=== PATIENT | female | born 1940 | race Caucasian/White ===

== ENCOUNTER 2017-05-20 14:36 | Inpatient (IN) | payer MEDICARE, OTHER ==
[~2017-05-20] VITALS: Ht 157.5 cm; Wt 75.7 kg
[2017-05-20 04:00] VITALS: BP 156/55
[~2017-05-20 14:36] MED LIST: AMLO5TAB2 PO; ATOR20TA PO; ENTERAL NUTRITION FORMULA; MEMA10TA PO; NEBI5TAB8 PO; QUET25TA PO; REPA2TAB PO; SITA1TAB6 PO; ZOLP10TA6 PO
--- NOTE | 2017-05-20 14:45 | NUR ---
PT BIBRA TO ER BED 09. HERE FOR G TUBE MALFUNCTION/DISLODGEMENT. BLOOD NOTED TO G TUBE SITE. GOWNED AND PLACED ONM MONITOR. AWAITING MD BENITEZ.
--- NOTE | 2017-05-20 14:57 | NUR ---
DR GREGG AT BEDSIDE FOR EVAL.
[2017-05-20] MEDS ORDERED: IV NS 0.9% 500 ML BAG IV ONE (15:00)
--- NOTE | 2017-05-20 15:14 | NUR ---
IV LINE STARTED BLOOD DRAWN AND SENT TO LAB.
[2017-05-20 15:19] LABS: BASOPHILS % (AUTO) 0.4 % (0.0-2.0); EOSINOPHILS # (AUTO) 0.1 /CMM (0.0-0.7); EOSINOPHILS % (AUTO) 2.1 % (0.0-6.0); HEMATOCRIT 32 % (33-45); HEMOGLOBIN 10.6 g/dL (11.5-14.8); LYMPHOCYTES # (AUTO) 1.9 /CMM (0.8-4.8); LYMPHOCYTES % (AUTO) 28.9 % (20.0-44.0); MEAN CORPUSCULAR HEMOGLOBIN 30 PG (26.0-33.0); MEAN CORPUSCULAR HGB CONC 34 g/dl (31.0-36.0); MEAN CORPUSCULAR VOLUME 90 fL (82-100); MONOCYTES # (AUTO) 0.6 /CMM (0.1-1.30); MONOCYTES % (AUTO) 8.6 % (2.0-12.0); NEUTROPHILS # (AUTO) 3.8 /CMM (1.8-8.9); PLATELET COUNT (AUTO) 141 /CMM (150-450); RDW COEFFICIENT OF VARIATION 14.1 (11.5-15.0); RED BLOOD CELL COUNT(AUTO) 3.53 MIL/uL (4.0-5.2); WHITE BLOOD COUNT (AUTO) 6.4 K/uL (4.3-11.0)
[2017-05-20] MEDS ORDERED: VITA1TAB56 GT (15:24)
[2017-05-20] MEDS ORDERED: MECL-102 GT (15:24)
[2017-05-20] MEDS ORDERED: CALC-7 GT (15:24)
[2017-05-20] MEDS ORDERED: ESOM40CA GT (15:24)
[2017-05-20] MEDS ORDERED: ASCO500S2 GT (15:24)
[2017-05-20] MEDS ORDERED: INSU100V7 SQ (15:24)
[2017-05-20] MEDS ORDERED: ICOS1CAP GT (15:24)
[2017-05-20] MEDS ORDERED: METO25TA20 GT (15:24)
[2017-05-20] MEDS ORDERED: CLOP75TA2 GT (15:24)
[2017-05-20] MEDS ORDERED: LORA1TAB GT (15:24)
[2017-05-20] MEDS ORDERED: FERR-58 GT (15:24)
[2017-05-20] MEDS ORDERED: FURO40TA5 GT (15:24)
[2017-05-20] MEDS ORDERED: MEMA5TAB PO (15:24)
[2017-05-20] MEDS ORDERED: LOSA25TA13 GT (15:24)
[2017-05-20] MEDS ORDERED: DOXE6TAB3 GT (15:24)
[2017-05-20] MEDS ORDERED: ATOR10TA GT (15:24)
[2017-05-20] MEDS ORDERED: NUT.237L36 GT (15:27)
[2017-05-20 15:29] LABS: CALCIUM, SERUM 8.8 mg/dL (8.5-10.1); CARBON DIOXIDE 29 mmol/L (21-32); CHLORIDE 101 mmol/L (98-107); CREATININE 0.8 mg/dL (0.6-1.3); GLUCOSE 86 mg/dL (74-106); POTASSIUM 4.2 mmol/L (3.5-5.1); SODIUM SERUM 135 mmol/L (136-145); UREA NITROGEN, BLOOD 25 mg/dL (7-18)
[2017-05-20 15:33] LABS: INR 1.05 (0.87-1.13); PROTHROMBIN TIME 10.9 SECS (9.5-12.7)
[2017-05-20] MEDS ORDERED: MAGNESIUM HYDROXIDE 30 ML UDC PO PRN (16:30)
[2017-05-20] MEDS ORDERED: ONDANSETRON HCL/PF 4 MG/2 ML VIAL IVP PRN (16:30)
[2017-05-20] MEDS ORDERED: GLYTROL 1,000 ML BAG GT SCH (16:30)
[2017-05-20] MEDS ORDERED: ACETAMINOPHEN 325 MG TABLET PO PRN (16:30)
[2017-05-20] MEDS ORDERED: Z GUARD REMEDY 2 OZ OINT TP PRN (16:30)
[2017-05-20] MEDS ORDERED: ZOLPIDEM TARTRATE 5 MG TABLET PO PRN (16:30)
[2017-05-20] MEDS ORDERED: HYDROCODONE/APAP 5/325MG 1 EACH TABLET PO PRN (16:30)
[2017-05-20] MEDS ORDERED: MAG HYDROX/AL HYDROX/SIMETH 30 ML UDC PO PRN (16:30)
--- NOTE | 2017-05-20 16:44 | NUR ---
REPORT GIVEN TO NILSA. PT AWAITING TRANSFER TO FLOOR.
[2017-05-20] MEDS: FERROUS SULFATE (325 MG) 325 MG/TAB TABLET GT SCH (17:00)
[2017-05-20] MEDS: METOPROLOL TARTRATE 25 MG TABLET GT SCH (17:00)
--- NOTE | 2017-05-20 17:30 | NUR ---
Admitted patient from ER [facility] a leaking/bleeding G-tube site. Patient obtunded, contracted on bedrest. Unable to give history, Grandson at bedside with social worker palliative care. Vitals signs stable. wound on bilateral leg with non adhesive dressing. G-tube side full of blood and still leaking. Cleaned and picture taken.
[2017-05-20 18:00] VITALS: BP 156/55
--- NOTE | 2017-05-20 18:00 | NUR ---
Informed Dr. Goldsmith patient diabetic, asked for Accucheck order, waiting for response.
--- NOTE | 2017-05-20 18:30 | NUR ---
Informed Dr. Goldsmith patient G-tube leaking with clear liquid and moderate amout of blood. Vitals stable, ,no distress. G-tube feeding initiation on hold. Started D5 NS @ 100.
[2017-05-20] MEDS: IV D5/ 0.9% NACL 1,000 ML IV PRN (18:33)
[2017-05-20 20:00] VITALS: BP 138/62
--- NOTE | 2017-05-20 20:26 | NUR ---
MS-1/RENETTA SPOKE WITH JAYDE HO REGARDING ACCU CHECK, HOLD LANTUS AND PT NPO STATUS. HOLD ALL MEDS UNTIL FURTHER NOTICE. NEW ORDERS RECEIVED AND CARRIED OUT.
[2017-05-20] MEDS ORDERED: DEXTROSE 50%-WATER 50 ML DISP.SYRIN IV PRN (20:30)
--- NOTE | 2017-05-20 21:22 | NUR ---
MS-1/QUILLER TENDER WHILE REPOSITION PT. GTUBE BECAME DISLODGED. JAYDE HO CALLED AND MADE AWARE. DRESSING PLACED ON TOP OF STOMA. WILL CONTINUE TO MONITOR.
[2017-05-20] MEDS: MEMANTINE HCL 5 MG TABLET PO SCH (21:25)
[2017-05-20] MEDS: INSULIN DETEMIR 100 UNIT/ML CARTRIDGE SQ SCH (21:25)
[2017-05-20] MEDS: LORAZEPAM 1 MG TABLET GT SCH (21:25)
[2017-05-20] MEDS: ATORVASTATIN 10 MG TABLET GT SCH (21:25)
--- NOTE | 2017-05-20 22:42 | NUR ---
MS-1/OIL EXPERT REPORT TO ARDEN RINCON FOR CONT OF CARE.
--- NOTE | 2017-05-20 22:45 | NUR ---
RN NOTE RECEIVED REPORT FROM OUTGOING NURSE. PT RESTING IN BED WITH EYES CLOSED, NO DISTRESS NOTED AT THIS TIME. WILL MONITOR.
[2017-05-21] MEDS: BLOOD SUGAR DIAGNOSTIC 1 EACH STRIP IN SCH ×5 (00:20→23:44)
[2017-05-21] MEDS: IV D5/ 0.9% NACL 1,000 ML IV PRN ×2 (03:17→14:13)
[2017-05-21 04:00] VITALS: BP 155/56
[2017-05-21 04:28] VITALS: BP 155/56
--- NOTE | 2017-05-21 06:37 | NUR ---
RN NOTE NO SIGNIFICANT CHANGES OVERNIGHT. ABD DRESSING CHANGED, WAS SATURATED WITH BLOOD. IV INTACT AND PATENT, TOLERATING D5NS WELL. NPO AT THIS TIME. GI TO SEE PT. WILL ENDORSE TO DAY SHIFT FOR DORA.
[2017-05-21] MEDS: PANTOPRAZOLE 40 MG TABLET.DR PO SCH (06:46)
[2017-05-21 06:58] LABS: BASOPHILS % (AUTO) 0.2 % (0.0-2.0); EOSINOPHILS % (AUTO) 0.1 % (0.0-6.0); HEMATOCRIT 30 % (33-45); HEMOGLOBIN 10.1 g/dL (11.5-14.8); LYMPHOCYTES # (AUTO) 1.3 /CMM (0.8-4.8); LYMPHOCYTES % (AUTO) 19.3 % (20.0-44.0); MEAN CORPUSCULAR HEMOGLOBIN 31 PG (26.0-33.0); MEAN CORPUSCULAR HGB CONC 34 g/dl (31.0-36.0); MEAN CORPUSCULAR VOLUME 91 fL (82-100); MONOCYTES # (AUTO) 0.6 /CMM (0.1-1.30); MONOCYTES % (AUTO) 8.6 % (2.0-12.0); NEUTROPHILS % (AUTO) 71.8 % (43.0-81.0); PLATELET COUNT (AUTO) 125 /CMM (150-450); RDW COEFFICIENT OF VARIATION 14.9 (11.5-15.0); RED BLOOD CELL COUNT(AUTO) 3.29 MIL/uL (4.0-5.2)
[2017-05-21 07:07] LABS: CHOLESTEROL 113 mg/dL (<200); HDL CHOLESTEROL 72 mg/dL (40-60); LDL 41 mg/dL (0-99); THYROID STIMULATING HORMONE 5.088 uIU/mL (0.358-3.74); TRIGLYCERIDES 19 mg/dL (30-150)
[2017-05-21 07:10] LABS: CALCIUM, SERUM 8.1 mg/dL (8.5-10.1); CARBON DIOXIDE 27 mmol/L (21-32); CHLORIDE 105 mmol/L (98-107); CREATININE 0.7 mg/dL (0.6-1.3); GLUCOSE 125 mg/dL (74-106); MAGNESIUM 1.8 mg/dL (1.8-2.4); PHOSPHORUS 2.8 mg/dL (2.5-4.9); SODIUM SERUM 139 mmol/L (136-145); UREA NITROGEN, BLOOD 22 mg/dL (7-18)
--- NOTE | 2017-05-21 07:30 | NUR ---
MS RN NOTES RECEIVED PATIENT IN BED, AWAKE, EYES OPEN, NON VERBAL. ON ROOM AIR, BREATHING EVEN AND NON LABORED, NO SOB. PATIENT IS ON NPO STATUS, ON IVF D5 NS INFUSING AT 100ML/HR. ABDOMEN WITH STOMA, DRESSING INTACT, NO BLEEDING. NO FACIAL GRIMACING. BED LOW AND LOCKED. FOR GI CONSULT PER NIGHT NURSE REPORT. WILL CONT TO MONITOR.
[2017-05-21 08:00] VITALS: BP 152/46
[2017-05-21] MEDS: LOSARTAN POTASSIUM 25 MG TABLET GT SCH (09:00)
[2017-05-21] MEDS: CALCIUM CARB 250MG /VITAMIN D 1 UDTAB GT SCH (09:00)
[2017-05-21] MEDS: METOPROLOL TARTRATE 25 MG TABLET GT SCH ×2 (09:00→17:00)
[2017-05-21] MEDS: FERROUS SULFATE (325 MG) 325 MG/TAB TABLET GT SCH ×2 (09:00→17:00)
[2017-05-21] MEDS: AMLODIPINE BESYLATE 5 MG TABLET PO SCH (09:00)
--- NOTE | 2017-05-21 11:58 | NUR ---
CALLED DR. MENJIVAR/BRITTANY (COMMERCIAL GREEN RETROFIT ARCHITECT) FOR CONSULT, LEFT MESSAGE TO HIS VOICE MAIL. AWAITING CALL BACK.
--- NOTE | 2017-05-21 12:06 | NUR ---
ACCU CHECK BS 131MG/DL. NO INSULIN COVERAGE ORDERED.
[2017-05-21 16:00] VITALS: BP 153/54
--- NOTE | 2017-05-21 17:30 | NUR ---
PATIENT IN BED, BILATERAL UPPER EXTREMITIES CONTRACTED. PROVIDED SKIN CARE TO THE PATIENT, POP SOUND HEARD WHILE PLACING PILLOWS UNDER RIGHT ARM. CHARGE NURSE MADE AWARE. NOTIFIED DR.SAM DING, ORDERED XRAY.
--- NOTE | 2017-05-21 17:32 | NUR ---
ACCU CHECK BS 111MG/DL. NO INSULIN COVERAGE ORDERED.
--- NOTE | 2017-05-21 18:29 | NUR ---
MS RN CLOSING NOTES PATIENT IN BED, NOT IN DISTRESS. NO S/S OF HYPO/HYPERGLYCEMIA. ABDOMINAL STOMA CLEAN, COVERED WITH DRY GAUZE, NO BLEEDING NOTED. DR. METZGER/BRITTANY WAS NOTIFIED X2 FOR CONSULT, AWAITING MD TO CALL BACK. PATIENT APPEARS COMFORTABLE IN BED, NO FACIAL GRIMACE. XRAY RIGHT FOREARM AND RIGHT HUMERUS RESULT PENDING. BED LOW AND LOCKED FOR SAFETY. WILL ENDORSE TO BRISKET PULLER RN FOR CONTINUITY OF CARE.
--- NOTE | 2017-05-21 19:05 | NUR ---
RN OPENING NOTES RECEIVED REPORT FROM GARRETT RINCON. PATIENT NON-VERBAL, OBTUNDED. BREATHING EVEN AND UNLABORED, NO RESPIRATORY DISTRESS OR SOB NOTED, ON ROOM AIR. PULSES PRESENT. LEFT FOREARM IV SITE #20 CDI W/ D5 NS @ 100ML/HR. WINKLER CATH INTACT AND DRAINING YELLOW URINE. GT SITE DRESSING CDI, NO ACTIVE BLEEDING NOTED. SIDE RAILS UP, BED LOCKED AND IN LOWEST POSITION. WILL CONTINUE TO MONITOR.
--- NOTE | 2017-05-21 19:58 | NUR ---
RN NOTES PAGED FOR ON-CALL COMMERCIAL LOAN COLLECTION OFFICERJAYDE REGARDING X-RAY RESULTS OF RIGHT FOREARM AND RIGHT HUMERUS. AWAITING CALL BACK.
[2017-05-21 20:00] VITALS: BP 156/46
--- NOTE | 2017-05-21 20:07 | NUR ---
RN NOTES RECEIVED CALL FROM JAYDE ON-CALL TELECOMMUNICATION OPERATOR AND REPORTED PATIENT'S X-RAY RESULTS OF RIGHT FOREARM AND RIGHT HUMERUS. NO NEW ORDERS GIVEN. PER JAYDE, CONTINUE TO MONITOR AND FOLLOW-UP IN THE MORNING.
--- NOTE | 2017-05-21 20:52 | NUR ---
RN NOTES RECEIVED CALL BACK FROM ELIZABETH DONOHUE W/ NEW ORDERS. ORDERS CARRIED OUT.
[2017-05-21] MEDS: MEMANTINE HCL 5 MG TABLET PO SCH ×2 (21:49→21:57)
[2017-05-21] MEDS: LORAZEPAM 1 MG TABLET GT SCH ×2 (21:49→21:56)
[2017-05-21] MEDS: ATORVASTATIN 10 MG TABLET GT SCH ×2 (21:49→21:57)
[2017-05-21] MEDS: MUPIROCIN OINT 2% 22 GM TUBE SCH (21:54)
[2017-05-21] MEDS: INSULIN DETEMIR 100 UNIT/ML CARTRIDGE SQ SCH (22:00)
[2017-05-22] MEDS: IV D5/ 0.9% NACL 1,000 ML IV PRN ×2 (02:00→11:47)
[2017-05-22 04:00] VITALS: BP 152/49
--- NOTE | 2017-05-22 07:00 | NUR ---
RN NOTES RECEIVED PT ON BED , NON-VERBAL, OBTUNDED. BREATHING EVEN AND UNLABORED, ON RA, NO SOB NOTED , NO RESPIRATORY DISTRESS NOTED , LEFT FOREARM IV SITE #20 CDI W/ D5 NS @ 100ML/HR RUNNING WELL. WINKLER CATH INTACT AND DRAINING YELLOW URINE. GT SITE DRESSING CDI, NO ACTIVE BLEEDING NOTED. SIDE RAILS UPx3, CALL LIGHT WITHIN EASY REACH, BED LOCKED AND IN LOWEST POSITION. WILL CONTINUE TO MONITOR PT CLOSELY AND NOTIFY MD FOR ANY SIGNIFICANT CHANGES.
[2017-05-22] MEDS: BLOOD SUGAR DIAGNOSTIC 1 EACH STRIP IN SCH ×3 (07:21→23:19)
[2017-05-22] MEDS: PANTOPRAZOLE 40 MG TABLET.DR PO SCH ×2 (07:30→08:12)
[2017-05-22] MEDS: INSULIN DETEMIR 100 UNIT/ML CARTRIDGE SQ SCH ×2 (07:44→22:00)
[2017-05-22 08:00] VITALS: BP 155/47
[2017-05-22 08:03] VITALS: BP 155/37
[2017-05-22] MEDS: FERROUS SULFATE (325 MG) 325 MG/TAB TABLET GT SCH ×3 (08:12→16:51)
[2017-05-22] MEDS: AMLODIPINE BESYLATE 5 MG TABLET PO SCH ×2 (08:13→08:21)
[2017-05-22] MEDS: LOSARTAN POTASSIUM 25 MG TABLET GT SCH ×2 (08:13→08:19)
[2017-05-22] MEDS: CALCIUM CARB 250MG /VITAMIN D 1 UDTAB GT SCH ×2 (08:13→08:20)
[2017-05-22] MEDS: METOPROLOL TARTRATE 25 MG TABLET GT SCH ×3 (08:13→16:51)
[2017-05-22] MEDS: MUPIROCIN OINT 2% 22 GM TUBE SCH ×2 (08:15→21:47)
[2017-05-22 08:46] LABS: BASOPHILS % (AUTO) 0.1 % (0.0-2.0); HEMATOCRIT 28 % (33-45); HEMOGLOBIN 9.3 g/dL (11.5-14.8); LYMPHOCYTES # (AUTO) 1.2 /CMM (0.8-4.8); LYMPHOCYTES % (AUTO) 13.2 % (20.0-44.0); MEAN CORPUSCULAR HEMOGLOBIN 30 PG (26.0-33.0); MEAN CORPUSCULAR HGB CONC 34 g/dl (31.0-36.0); MEAN CORPUSCULAR VOLUME 90 fL (82-100); MONOCYTES # (AUTO) 0.9 /CMM (0.1-1.30); MONOCYTES % (AUTO) 9.7 % (2.0-12.0); NEUTROPHILS # (AUTO) 6.8 /CMM (1.8-8.9); PLATELET COUNT (AUTO) 112 /CMM (150-450); RDW COEFFICIENT OF VARIATION 15.4 (11.5-15.0); RED BLOOD CELL COUNT(AUTO) 3.07 MIL/uL (4.0-5.2); WHITE BLOOD COUNT (AUTO) 8.8 K/uL (4.3-11.0)
[2017-05-22 09:19] LABS: CALCIUM, SERUM 7.6 mg/dL (8.5-10.1); CARBON DIOXIDE 23 mmol/L (21-32); CHLORIDE 110 mmol/L (98-107); CREATININE 0.7 mg/dL (0.6-1.3); GLUCOSE 183 mg/dL (74-106); MAGNESIUM 1.7 mg/dL (1.8-2.4); PHOSPHORUS 2.3 mg/dL (2.5-4.9); POTASSIUM 3.8 mmol/L (3.5-5.1); SODIUM SERUM 142 mmol/L (136-145); UREA NITROGEN, BLOOD 16 mg/dL (7-18)
--- NOTE | 2017-05-22 12:00 | NUR ---
RN NOTES PT STABLE , NON VERBAL , VSS STABLE , CONTINUE TO MONITOR .
[2017-05-22] MEDS ORDERED: DEXTROSE 50%-WATER 50 ML DISP.SYRIN IV PRN (12:30)
--- NOTE | 2017-05-22 14:55 | NUR ---
WOUND CARE CONSULT PATIENT SEEN AND SKIN ASSESSED. PATIENT PRESENTS WITH MULTIPLE POA SKIN ISSUES. UNABLE TO ASSESS RIGHT ARM IS IS CURRENTLY WRAPPED IN A CAST. PICTURES SHOW MULTIPLE AREAS OF BRUISING; NO OBVIOUS PRESSURE AREAS NOTED. LEFT UPPER ARM SKIN TEAR, RIGHT KNEE ABRASION, AND LEFT POSTERIOR LOWER LEG OPEN AREA, RECOMMEND TRIPLE ABX OINTMENT AND MEPILEX. RECOMMEND LEAVE RIGHT LEG SCABS AND SCARING OPEN TO AIR. FOR LEFT AND RIGHT BREAST FOLD REDNESS, RECOMMEND CLEANSE WITH SOAP AND WATER, PAT DRY, APPLY ZGUARD. WILL DEFER OLD GTUBE SITE WOUND TO GI MD FOR TREATMENT. PATIENT CURRENTLY ON STRIKER GEL MATTRESS, RECOMMEND ISOFLEX LOW AIR LOSS MATTRESS. WOUND SKIN CARE PLAN IN PLACE. ALL ORDERS PLACE AND RECOMMENDATIONS DISCUSSED WITH NURSING AT THE BEDSIDE. WILL CONTINUE TO FOLLOW PATIENT NEEDED. Addendum: 05/22/17 at 1504 by PATTY REYNA RN Amended: Links added.
[2017-05-22 16:00] VITALS: BP 158/54
[2017-05-22] MEDS ORDERED: Sodium Phosphate 15 MMOL in IV D5W 250 ML IV ONE (16:00)
[2017-05-22] MEDS: NEOMY SULF/BACITRAC ZN/POLY 15 GM TUBE TP SCH (17:42)
--- NOTE | 2017-05-22 18:16 | NUR ---
RN NOTES PT AT REST , RESPIRATION EVEN AND UNLABORED, D5NS AT 100CC/HR RUNNING VIA LFA IV SITE, SUPPORTIVE FAMILY AT THE BEDSIDE, SR UP x3, CALL LIGHT WITHIN EASY REACH, MEDICATED PER MD ORDER , NO SIGNIFICANT CHANGES NOTED ON THIS SHIFT.
[2017-05-22 20:00] VITALS: BP 157/69
--- NOTE | 2017-05-22 20:00 | NUR ---
MS RN NOTE PT IN BED ASLEEP, AROUSABLE. NON VERBAL OBTUNDED. NO DISTRESS OR DISCOMFORT NOTED. NO S/S OF PAIN NOTED. F/C INTACT AND PATENT. DRAINING WELL. PT IS NPO. GT SITE WITH DRESSING NOTED, C/D/I. LFA #20 G D5NS @ 100 ML/HR INFUSING WELL, NO S/S OF INFILTRATION NOTED. NO S/S OF HYPO OR HYPERGLYCEMIA NOTED. 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 ISOLATION PRECAUTIONS TAKEN. RT ARM WITH RADHA WRAP ON. UPPER AND LOWER EXT'S CONTRACTED. SIDE RAILS UP X 3 AND CALL LIGHT WITHIN REACH. VSS. CONTINUE TO MONITOR HER.
[2017-05-22] MEDS: Magnesium 1GM/D5W 100ML PREMIX 100 ML IV SCH ×2 (21:00→21:47)
[2017-05-22] MEDS: MEMANTINE HCL 5 MG TABLET PO SCH (21:40)
[2017-05-22] MEDS: ATORVASTATIN 10 MG TABLET GT SCH (21:40)
[2017-05-22] MEDS: LORAZEPAM 1 MG TABLET GT SCH (21:40)
--- NOTE | 2017-05-22 23:43 | NUR ---
MS RN NOTE BLOODSUGAR CAME DOWN TO 51, DEXTROSE 50% IVP GIVEN. RECHECKED AFTER 20 MINUTES BS 174. PT IN NO DISTRESS OR DISCOMFORT.
[2017-05-23 04:00] VITALS: BP 150/50
[2017-05-23] MEDS: IV D5/ 0.9% NACL 1,000 ML IV PRN ×2 (04:49→17:16)
[2017-05-23] MEDS: BLOOD SUGAR DIAGNOSTIC 1 EACH STRIP IN SCH ×4 (05:47→23:03)
--- NOTE | 2017-05-23 06:25 | NUR ---
MS RN NOTE NO CHANGE IN CONDITION. PT IS OBTUNDED. NO DISTRESS OR DISCOMFORT NOTED. NO S/S OF PAIN NOTED. IVF D5NS @ 100 ML/HR INFUSING WELL, NO S/S OF INFILTRATION NOTED. F/C INTACT AND PATENT DRAINING YELLOWISH COLOR URINE. REPOSITION HER Q2H. SIDE RAILS UP X 2 AND CALL LIGHT WITHIN REACH. WILL ENDORSE TO DAY SHIFT NURSE FOR CONTINUE TO CARE.
[2017-05-23 06:49] LABS: BASOPHILS % (AUTO) 0.2 % (0.0-2.0); EOSINOPHILS % (AUTO) 0.2 % (0.0-6.0); HEMATOCRIT 28 % (33-45); HEMOGLOBIN 9.5 g/dL (11.5-14.8); LYMPHOCYTES # (AUTO) 1.8 /CMM (0.8-4.8); LYMPHOCYTES % (AUTO) 16.6 % (20.0-44.0); MEAN CORPUSCULAR HEMOGLOBIN 32 PG (26.0-33.0); MEAN CORPUSCULAR HGB CONC 34 g/dl (31.0-36.0); MEAN CORPUSCULAR VOLUME 92 fL (82-100); MONOCYTES # (AUTO) 1.2 /CMM (0.1-1.30); MONOCYTES % (AUTO) 11.2 % (2.0-12.0); NEUTROPHILS % (AUTO) 71.8 % (43.0-81.0); PLATELET COUNT (AUTO) 114 /CMM (150-450); RDW COEFFICIENT OF VARIATION 15.6 (11.5-15.0); RED BLOOD CELL COUNT(AUTO) 3.02 MIL/uL (4.0-5.2); WHITE BLOOD COUNT (AUTO) 11.1 K/uL (4.3-11.0)
--- NOTE | 2017-05-23 07:00 | NUR ---
RN NOTE RECEIVED PT ON BED , NON VERBAL ,OBTUNDED.RESPIRATION EVEN AND UNLABORED, ON RA , NO SOB NOTED, WINKLER DRAINING TO GRAVITY , INTACT AND PATENT , NPO. GT SITE WITH DRESSING C/D/I. LFA #20 G D5NS @ 100 ML/HR INFUSING WELL, NO S/S OF INFILTRATION NOTED. 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 ISOLATION PRECAUTIONS TAKEN. RADHA WRAP ON ON R ARM , UPPER AND LOWER EXT'S CONTRACTED. BED LOCKED AND IN LOWEST POSITION , SIDE RAILS UP X 3 AND CALL LIGHT WITHIN REACH. CONTINUE TO MONITOR PT CLOSELY.
[2017-05-23 07:30] LABS: CALCIUM, SERUM 7.5 mg/dL (8.5-10.1); CARBON DIOXIDE 23 mmol/L (21-32); CHLORIDE 112 mmol/L (98-107); CREATININE 0.6 mg/dL (0.6-1.3); GLUCOSE 80 mg/dL (74-106); MAGNESIUM 2.3 mg/dL (1.8-2.4); PHOSPHORUS 2.9 mg/dL (2.5-4.9); POTASSIUM 3.3 mmol/L (3.5-5.1); SODIUM SERUM 144 mmol/L (136-145); UREA NITROGEN, BLOOD 13 mg/dL (7-18)
[2017-05-23] MEDS: PANTOPRAZOLE 40 MG TABLET.DR PO SCH (07:30)
[2017-05-23 08:00] VITALS: BP 135/45
[2017-05-23] MEDS: FERROUS SULFATE (325 MG) 325 MG/TAB TABLET GT SCH ×2 (08:17→17:00)
[2017-05-23] MEDS: LOSARTAN POTASSIUM 25 MG TABLET GT SCH (08:17)
[2017-05-23] MEDS: METOPROLOL TARTRATE 25 MG TABLET GT SCH ×2 (08:17→17:00)
[2017-05-23] MEDS: CALCIUM CARB 250MG /VITAMIN D 1 UDTAB GT SCH (08:18)
[2017-05-23] MEDS: AMLODIPINE BESYLATE 5 MG TABLET PO SCH (08:18)
[2017-05-23] MEDS: MUPIROCIN OINT 2% 22 GM TUBE SCH ×2 (08:19→21:30)
[2017-05-23] MEDS: NEOMY SULF/BACITRAC ZN/POLY 15 GM TUBE TP SCH (08:20)
[2017-05-23] MEDS ORDERED: POTASSIUM CHLORIDE 20 MEQ POWDER PACKET GT SCH (11:00)
[2017-05-23] MEDS: POTASSIUM CL. PREMIX PERIPHER. 50 ML IV SCH ×2 (11:07→12:35)
[2017-05-23 12:00] VITALS: BP 131/50
--- NOTE | 2017-05-23 13:00 | NUR ---
RN NOTES ORTHO COMPANY NOTIFIED REGARDING RUANO BRACE FOR THE L ARM PER DR RESENDIZ ORDER,
[2017-05-23] MEDS: MORPHINE SULFATE INJ 2 MG/ML DISP.SYRIN IV PRN (13:10)
[2017-05-23 16:00] VITALS: BP 131/50
--- NOTE | 2017-05-23 18:10 | NUR ---
RN NOTES VSS STABLE , RESPIRATION EVEN AND UNLABORED, D5NS @100CC/HR RUNNING VIA L FOREARM IV SITE . L ARM MIDLINE SITE CDI, SR UP x3, CALL LIGHT WITHIN EASY REACH. DRESSING TO OLD GT SITE WITH SMALL AMOUNT OF OLD BLOOD ,NO SIGNIFICANT CHANGES NOTED ON THIS SHIFT.
[2017-05-23 20:00] VITALS: BP 90/65
--- NOTE | 2017-05-23 20:00 | NUR ---
MS RN NOTE PT IN BED OBTUNDED. NON VERBAL. NO DISTRESS OR DISCOMFORT NOTED. NO SS OF PAIN NOTED. F/C INTACT AND PATENT DRAINING TEA COLOR URINE. IVF D5NS INFUSING AT !00 ML/HR, NO S/S OF INFILTRATION NOTED AT LFA #18 G. MID LINE INTACT AND PATENT JANEE. NOTED PT WITH GENERALIZED EDEMA. ALL 4 EXT'S ARE CONTRACTED. RT ARM WITH SPLINT ON AND COVERED WITH RADHA WRAP. REPOSITION HER FOR SKIN MANAGEMENT. SIDE RAILS UP X 2 AND CALL LIGHT WITHIN REACH. VSS. CONTINUE TO MONITOR HER.
[2017-05-23] MEDS: MEMANTINE HCL 5 MG TABLET PO SCH (21:30)
[2017-05-23] MEDS: ATORVASTATIN 10 MG TABLET GT SCH (21:30)
[2017-05-23] MEDS: LORAZEPAM 1 MG TABLET GT SCH (21:30)
[2017-05-23] MEDS: INSULIN DETEMIR 100 UNIT/ML CARTRIDGE SQ SCH (21:31)
--- NOTE | 2017-05-23 23:04 | NUR ---
MS RN NOTE BS 131. HELD ALL HS MEDS AND INSULIN DUE TO PT REMAIN NPO.
[2017-05-24 04:00] VITALS: BP 103/49
[2017-05-24] MEDS: IV D5/ 0.9% NACL 1,000 ML IV PRN ×2 (04:04→14:37)
[2017-05-24] MEDS: BLOOD SUGAR DIAGNOSTIC 1 EACH STRIP IN SCH ×4 (06:00→23:08)
--- NOTE | 2017-05-24 07:15 | NUR ---
RN INITIAL NOTE PATIENT RECEIVED RESTING IN BED. PT OPENS EYES BUT IS NONVERBAL. NO S/S OF DISTRESS OR DISCOMFORT. RESPIRATIONS ARE EVEN AND UNLABORED. SATING WELL ON ROOM AIR. WINKLER CATH DRAINING TO GRAVITY. IV SITE FLUSHED, PATENT. GT SITE BANDAGE C/D/I. SKIN WARM AND DRY TO TOUCH. PATIENT IS ON NPO STATUS PENDING PEG PLACEMENT. SAFETY PRECAUTIONS IMPLEMENTED. BED IN LOCKED LOW POSITION WITH TWO SIDE RAILS UP. WILL MONITOR CLOSELY.
[2017-05-24] MEDS: PANTOPRAZOLE 40 MG TABLET.DR PO SCH (07:30)
[2017-05-24 07:58] LABS: CALCIUM, SERUM 7.1 mg/dL (8.5-10.1); CARBON DIOXIDE 23 mmol/L (21-32); CHLORIDE 116 mmol/L (98-107); CREATININE 0.6 mg/dL (0.6-1.3); GLUCOSE 152 mg/dL (74-106); POTASSIUM 3.7 mmol/L (3.5-5.1); SODIUM SERUM 148 mmol/L (136-145); UREA NITROGEN, BLOOD 11 mg/dL (7-18)
[2017-05-24 08:00] VITALS: BP 119/38
[2017-05-24] MEDS: NEOMY SULF/BACITRAC ZN/POLY 15 GM TUBE TP SCH (09:00)
[2017-05-24] MEDS: CALCIUM CARB 250MG /VITAMIN D 1 UDTAB GT SCH (09:00)
[2017-05-24] MEDS: LOSARTAN POTASSIUM 25 MG TABLET GT SCH (09:00)
[2017-05-24] MEDS: MUPIROCIN OINT 2% 22 GM TUBE SCH ×2 (09:00→21:34)
[2017-05-24] MEDS: FERROUS SULFATE (325 MG) 325 MG/TAB TABLET GT SCH ×2 (09:00→16:43)
[2017-05-24] MEDS: AMLODIPINE BESYLATE 5 MG TABLET PO SCH (09:00)
[2017-05-24] MEDS: METOPROLOL TARTRATE 25 MG TABLET GT SCH ×2 (10:24→16:44)
[2017-05-24 11:10] LABS: INR 1.1 (0.87-1.13); PROTHROMBIN TIME 11.8 SECS (9.5-12.7)
[2017-05-24] MEDS: INSULIN REGULAR, HUMAN 100 UNIT/ML 3 ML VIAL SQ PRN ×3 (11:34→23:07)
--- NOTE | 2017-05-24 11:34 | NUR ---
late entry ortho company [employer] fitted pt. yesterday and will deliver today.
[2017-05-24 12:00] VITALS: BP 133/38
[2017-05-24 16:00] VITALS: BP 126/38
[2017-05-24] MEDS ORDERED: ACETAMINOPHEN 650 MG/SUPP.RECT RC PRN (17:00)
--- NOTE | 2017-05-24 17:00 | NUR ---
RN NOTE ORTHO CAME AND FITTED PATIENT FOR BRACE. HAD TO RETURN TWO TIMES TO MODIFY BRACE. WILL ENDORSE DORA TO PM RN
--- NOTE | 2017-05-24 17:00 | NUR ---
RN NOTE PEG PLACEMENT SCHEDULED TOMORROW. LABS XRAY AND EKG ORDERED. CONSENTS OBTAINED AND PLACED IN CHART.
--- NOTE | 2017-05-24 18:44 | NUR ---
RN CLOSING NOTE ALL MD ORDERS CARRIED OUT. NO MAJOR EVENT OCCURRED DURING MY SHIFT. REPORT WILL BE GIVEN TO PM RN FOR DORA.
--- NOTE | 2017-05-24 19:49 | NUR ---
RN INITIAL NOTE; PT ON THE BED WITHOUT ANY DISTRESS . PT IS NON VERBAL. BREATHING EVEN AND UNLABORED ON ROOM AIR. PERIPHERAL IV IN LFA 18 G AND JANEE MIDLINE INTACT AND PATENT WITH CONTINUE D5NS @ 100 ML/HR. BRACE INTACT IN SERGIO , PULSE PRESENT IN RIGHT HAND . GENERALIZED EDEMA PRESENT . PT IS AFEBRILE . NPO STATUS . G TUBE PLACEMENT TOMORROW . PRESSURE DRESSING INTACT ON G TUBE STOMA . F/C INTACT AND DRAINING DARK YELLOW/GREENISH COLORED URINE . BED IN THE LOWEST/LOCKED POSITION. WILL TURN AND REPOSITION Q2H . WILL CONTINUE TO MONITOR .
[2017-05-24 20:00] VITALS: BP 132/34
[2017-05-24] MEDS: LORAZEPAM 1 MG TABLET GT SCH (21:38)
[2017-05-24] MEDS: ATORVASTATIN 10 MG TABLET GT SCH (21:38)
[2017-05-24] MEDS: MEMANTINE HCL 5 MG TABLET PO SCH (21:38)
[2017-05-24] MEDS: INSULIN DETEMIR 100 UNIT/ML CARTRIDGE SQ SCH (22:00)
[2017-05-25] MEDS: IV D5/ 0.9% NACL 1,000 ML IV PRN ×2 (00:27→14:36)
[2017-05-25 04:00] VITALS: BP 133/39
[2017-05-25] MEDS: INSULIN REGULAR, HUMAN 100 UNIT/ML 3 ML VIAL SQ PRN ×2 (05:42→13:06)
[2017-05-25] MEDS: BLOOD SUGAR DIAGNOSTIC 1 EACH STRIP IN SCH ×4 (05:42→23:51)
[2017-05-25 05:49] LABS: APPEARANCE,URINE TURBID (CLEAR); BILIRUBIN,URINE 1+ (NEGATIVE); BLOOD, URINE 2+ Ery/uL (NEGATIVE); COLOR,URINE BROWN (YELLOW); KETONES,URINE NEGATIVE (NEGATIVE); LEUKOCYTE ESTERASE ,URINE 2+ (NEGATIVE); NITRITE, URINE NEGATIVE (NEGATIVE); PH,URINE 8.5 (5.0-8.0); PROTEIN,URINE 3+ mg/dl (NEGATIVE); UGLUCOSE NEGATIVE (NEGATIVE); UROBILINOGEN,URINE 0.2 EU/dL (0.2)
[2017-05-25 05:51] LABS: BASOPHILS % (AUTO) 0.3 % (0.0-2.0); EOSINOPHILS % (AUTO) 0.4 % (0.0-6.0); HEMATOCRIT 23 % (33-45); HEMOGLOBIN 7.6 g/dL (11.5-14.8); LYMPHOCYTES # (AUTO) 1.4 /CMM (0.8-4.8); LYMPHOCYTES % (AUTO) 18.1 % (20.0-44.0); MEAN CORPUSCULAR HEMOGLOBIN 30 PG (26.0-33.0); MEAN CORPUSCULAR HGB CONC 33 g/dl (31.0-36.0); MEAN CORPUSCULAR VOLUME 91 fL (82-100); MONOCYTES # (AUTO) 0.8 /CMM (0.1-1.30); MONOCYTES % (AUTO) 10.5 % (2.0-12.0); NEUTROPHILS # (AUTO) 5.6 /CMM (1.8-8.9); NEUTROPHILS % (AUTO) 70.7 % (43.0-81.0); PLATELET COUNT (AUTO) 119 /CMM (150-450); RDW COEFFICIENT OF VARIATION 15.6 (11.5-15.0); RED BLOOD CELL COUNT(AUTO) 2.54 MIL/uL (4.0-5.2); WHITE BLOOD COUNT (AUTO) 7.9 K/uL (4.3-11.0)
[2017-05-25 05:55] LABS: BACTERIA,URINE 4+ /HPF (None Seen); SQUAMOUS EPITHELIAL CELL,UR Rare /HPF (None Seen); TRIPLE PHOSPHATE CRYSTAL,UR Few /HPF (None Seen); URINE AMORPHOUS URATE Many /HPF (None Seen)
[2017-05-25 06:02] LABS: CALCIUM, SERUM 7.2 mg/dL (8.5-10.1); CARBON DIOXIDE 22 mmol/L (21-32); CHLORIDE 118 mmol/L (98-107); CREATININE 0.7 mg/dL (0.6-1.3); GLUCOSE 167 mg/dL (74-106); POTASSIUM 3.1 mmol/L (3.5-5.1); SODIUM SERUM 149 mmol/L (136-145); UREA NITROGEN, BLOOD 10 mg/dL (7-18)
[2017-05-25 06:07] LABS: INR 1.11 (0.87-1.13)
--- NOTE | 2017-05-25 06:59 | NUR ---
RN EOS NOTE; PT REMAINED STABLE DURING THE SHIFT, NO ANY DISTRESS NOTED . IVF TOLERATED WELL. SERGIO BRACE INTACT . PULSE PRESENT . TOTAL CARE RENDERED , TYLENOL 650 MG SUPP GIVEN FOR TEMP 99.7 F . REPOSITIONED Q2H . ON NPO STATUS . WILL ENDORSE TO NEXT SHIFT RN FOR CONTINUITY OF CARE.
--- NOTE | 2017-05-25 07:10 | NUR ---
MS RN INITIAL NOTE: RECEIVED PATIENT BREATHING EVEN AND UNLABORED WITH NO SOB NOTED ON ROOM AIR. PATIENT IS OBTUNDED AND NONVERBAL. LFA 18 G AND JANEE MIDLINE INTACT AND PATENT. BRACE INTACT IN SERGIO WITH PULSE PRESENT IN RIGHT HAND AND WARM TO TOUCH. WINKLER CATH DRAINING TO GRAVITY WITH YELLOW/GREEN URINE NOTED. NPO STATUS. BED LOCKED, LOW WITH CALL LIGHT WITHIN REACH. ALL NEEDS MET AND ANTICIPATED. WILL CONT TO MONITOR.
[2017-05-25] MEDS: PANTOPRAZOLE 40 MG TABLET.DR PO SCH (07:30)
[2017-05-25 08:00] VITALS: BP 119/37
[2017-05-25] MEDS: LOSARTAN POTASSIUM 25 MG TABLET GT SCH (09:00)
[2017-05-25] MEDS: METOPROLOL TARTRATE 25 MG TABLET GT SCH ×2 (09:00→16:08)
[2017-05-25] MEDS: AMLODIPINE BESYLATE 5 MG TABLET PO SCH (09:00)
[2017-05-25] MEDS: CALCIUM CARB 250MG /VITAMIN D 1 UDTAB GT SCH (09:00)
[2017-05-25] MEDS: FERROUS SULFATE (325 MG) 325 MG/TAB TABLET GT SCH ×2 (09:00→16:07)
[2017-05-25] MEDS: POTASSIUM CL. PREMIX PERIPHER. 50 ML IV SCH ×4 (11:06→14:31)
[2017-05-25] MEDS: NEOMY SULF/BACITRAC ZN/POLY 15 GM TUBE TP SCH (11:07)
[2017-05-25] MEDS: MUPIROCIN OINT 2% 22 GM TUBE SCH ×2 (11:07→23:00)
--- NOTE | 2017-05-25 12:00 | NUR ---
MS RN NOTE: SURGERY CALLED TO INFORM OF PATIENT SCHEDULED FOR GTUBE AT 1730. FAMILY NOTIFIED AND WOULD LIKE TO SPEAK TO SURGEON PRIOR. WILL NOTIFY CHARGE NURSE DIRECTED BY SURGERY TO CONNECT FAMILY WITH SURGEON.
[2017-05-25 16:00] VITALS: BP 139/67
[2017-05-25] MEDS ORDERED: POTASSIUM CL. PREMIX PERIPHER. 50 ML IV SCH (16:00)
--- NOTE | 2017-05-25 16:03 | NUR ---
MS RN NOTE: NON ADMIN NOTE 1330 POTASSIUM NON-ADMIN. LAST BAG OF POTASSIUM GIVEN AT 1600- COMMUNICATED WITH PHARMACY TO SCHEDULE @ 1600 SINCE POTASSIUM UNABLE D/T TIME EXPIRATION.
--- NOTE | 2017-05-25 17:34 | NUR ---
MS RN NOTE: PATIENT TAKEN BY SURGERY NURSES. FAMILY AT BEDSIDE AND AWARE.
--- NOTE | 2017-05-25 18:29 | NUR ---
MS RN NOTE: PATIENT RETURNED FROM OR WITH 2 NURSES. PER NURSE, SURGERY NOT DONE DUE TO INFECTION AND NEW ORDERS ENTERED BY SURGEON.
--- NOTE | 2017-05-25 19:30 | NUR ---
MS RN CLOSING NOTE: FAMILY AT BEDSIDE SPEAKING TO SURGEON DR. NEWMAN. PATIENT REMAINED STABLE DURING SHIFT ON RA WITH NO SOB AND RESPIRATIONS EVEN AND UNLABORED. SERGIO BRACE INTACT. KEPT NPO ORDERED. IVF TOLERATED. WINKLER CATH INTACT AND DRAINING TO GRAVITY. REPORT GIVEN TO FLIGHT STEWARD NURSE FOR CONTINUITY OF CARE.
--- NOTE | 2017-05-25 19:46 | NUR ---
RN INITIAL M NOTE; PT ON THE BED WITHOUT ANY DISTRESS . PT IS NON VERBAL. BREATHING EVEN AND UNLABORED ON ROOM AIR. PERIPHERAL IV IN LFA 18 G AND JANEE MIDLINE INTACT AND PATENT WITH CONTINUE D5NS @ 100 ML/HR. BRACE INTACT IN SERGIO , PULSE PRESENT IN RIGHT HAND . GENERALIZED EDEMA PRESENT . PT IS AFEBRILE . NPO STATUS . 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 F/C INTACT AND DRAINING DARK YELLOW/GREENISH COLORED URINE . BED IN THE LOWEST/LOCKED POSITION. WILL TURN AND REPOSITION Q2H . WILL CONTINUE TO MONITOR
[2017-05-25 20:00] VITALS: BP 131/51
[2017-05-25] MEDS: PIPERACILLIN /TAZOBACTAM 2.25 G in IV D5W 50 ML IV SCH (20:01)
--- NOTE | 2017-05-25 21:00 | NUR ---
2100 AND 2200 PM MEDS NOT GIVEN PT NPO GT PLACEMENT NOT DONE D/T GASTROCUTANEOUS FISTULA, LEVEMIR NOT GIVEN WELL.
[2017-05-25] MEDS: MEMANTINE HCL 5 MG TABLET PO SCH (22:00)
[2017-05-25] MEDS: ATORVASTATIN 10 MG TABLET GT SCH (22:00)
[2017-05-25] MEDS: INSULIN DETEMIR 100 UNIT/ML CARTRIDGE SQ SCH (22:00)
[2017-05-25] MEDS: LORAZEPAM 1 MG TABLET GT SCH (22:00)
[2017-05-26] VITALS: BP 133/58
[2017-05-26] MEDS: PIPERACILLIN /TAZOBACTAM 2.25 G in IV D5W 50 ML IV SCH ×5 (00:09→23:37)
[2017-05-26 04:00] VITALS: BP 133/46
[2017-05-26] MEDS: BLOOD SUGAR DIAGNOSTIC 1 EACH STRIP IN SCH ×4 (05:26→23:39)
[2017-05-26] MEDS: INSULIN REGULAR, HUMAN 100 UNIT/ML 3 ML VIAL SQ PRN ×2 (05:37→11:43)
--- NOTE | 2017-05-26 06:08 | NUR ---
RN CLOSING M NOTE; ENDORSED PT ON THE BED WITHOUT ANY DISTRESS . PT IS NON VERBAL. BREATHING EVEN AND UNLABORED ON ROOM AIR. PERIPHERAL IV IN LFA 18 G AND JANEE MIDLINE INTACT AND PATENT WITH CONTINUE D5NS @ 100 ML/HR. BRACE INTACT IN SERGIO , PULSE PRESENT IN RIGHT HAND . GENERALIZED EDEMA PRESENT . PT IS AFEBRILE . NPO STATUS . 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 F/C INTACT AND DRAINING DARK YELLOW/GREENISH COLORED URINE . BED IN THE LOWEST/LOCKED POSITION. WILL TURN AND
[2017-05-26 06:21] LABS: BASOPHILS % (AUTO) 0.4 % (0.0-2.0); EOSINOPHILS % (AUTO) 0.3 % (0.0-6.0); HEMATOCRIT 25 % (33-45); HEMOGLOBIN 8.2 g/dL (11.5-14.8); LYMPHOCYTES # (AUTO) 1.6 /CMM (0.8-4.8); LYMPHOCYTES % (AUTO) 23.1 % (20.0-44.0); MEAN CORPUSCULAR HEMOGLOBIN 30 PG (26.0-33.0); MEAN CORPUSCULAR HGB CONC 33 g/dl (31.0-36.0); MEAN CORPUSCULAR VOLUME 92 fL (82-100); MONOCYTES # (AUTO) 0.7 /CMM (0.1-1.30); MONOCYTES % (AUTO) 10.3 % (2.0-12.0); NEUTROPHILS # (AUTO) 4.7 /CMM (1.8-8.9); NEUTROPHILS % (AUTO) 65.9 % (43.0-81.0); PLATELET COUNT (AUTO) 119 /CMM (150-450); RDW COEFFICIENT OF VARIATION 15.5 (11.5-15.0); WHITE BLOOD COUNT (AUTO) 7.1 K/uL (4.3-11.0)
[2017-05-26 06:51] LABS: CALCIUM, SERUM 7.2 mg/dL (8.5-10.1); CARBON DIOXIDE 21 mmol/L (21-32); CHLORIDE 119 mmol/L (98-107); CREATININE 0.8 mg/dL (0.6-1.3); GLUCOSE 203 mg/dL (74-106); PHOSPHORUS 2.2 mg/dL (2.5-4.9); SODIUM SERUM 149 mmol/L (136-145); UREA NITROGEN, BLOOD 11 mg/dL (7-18)
--- NOTE | 2017-05-26 07:11 | NUR ---
MS RN NOTES RECEIVED PATIENT IN BED AT MODERATE HIGH BACKREST POSITION IN NO ACUTE SIGNS SOF DISTRESS. OBTUNDED AND NON-VERBAL. ON ROOM AIR, BREATHING EVEN AND UNLABORED. IV ACCESS ON LFA G#18 AND JANEE MIDLINE INTACT AND PATENT, IVF OF D5NS @ 100 ML/HR IN FUSING WELL.. BRACE INTACT IN SERGIO DUE TO FX ON RIGHT ARM, PULSE PRESENT IN RIGHT HAND. REMAINS WITH GENERALIZED EDEMA, EXTREMITIES KEPT ELEVATED. NPO MAINTAINED. 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 DRESSING INTACT ON G-TUBE STOMA. WINKLER INTACT AND DRAINING CLEAR DARK YELLOWISH COLORED URINE. BED IN THE LOWEST/LOCKED POSITION WITH SIDE-RAILS UP APPROPRIATE. WILL MAINTAIN ALL SAFETY MEASURES AND WILL CONTINUE TO MONITOR PT ACCORDINGLY.
[2017-05-26] MEDS: PANTOPRAZOLE 40 MG TABLET.DR PO SCH (07:30)
[2017-05-26 07:53] VITALS: BP 131/52
[2017-05-26 08:00] VITALS: BP 131/52
[2017-05-26] MEDS: METOPROLOL TARTRATE 25 MG TABLET GT SCH ×2 (09:00→17:00)
[2017-05-26] MEDS: CALCIUM CARB 250MG /VITAMIN D 1 UDTAB GT SCH (09:00)
[2017-05-26] MEDS: AMLODIPINE BESYLATE 5 MG TABLET PO SCH (09:00)
[2017-05-26] MEDS: LOSARTAN POTASSIUM 25 MG TABLET GT SCH (09:00)
[2017-05-26] MEDS: FERROUS SULFATE (325 MG) 325 MG/TAB TABLET GT SCH ×2 (09:00→17:00)
--- NOTE | 2017-05-26 09:18 | NUR ---
RN NOTES PT'S ALL MEDS VIA GT NOT GIVEN, PT HAS NO G-TUBE IT WAS PULLED -OUT FEW DAYS AGO AND SHE'S NPO. WILL CONTINUE TO MONITOR
[2017-05-26] MEDS: MUPIROCIN OINT 2% 22 GM TUBE SCH ×2 (09:21→20:38)
[2017-05-26] MEDS: NEOMY SULF/BACITRAC ZN/POLY 15 GM TUBE TP SCH (09:21)
[2017-05-26] MEDS: IV D5/ 0.9% NACL 1,000 ML IV PRN (09:31)
[2017-05-26 16:00] VITALS: BP 116/45
--- NOTE | 2017-05-26 17:20 | NUR ---
RN NOTES ALL G-TUBE MEDS THIS [id number] NOT GIVEN, PT STILL HAS NO G-TUBE AND SHE'S STILL NPO ORDERED.
[2017-05-26] MEDS ORDERED: BISACODYL SUPP (10 MG) 10 MG/SUPP.RECT SUPP.RECT RC ONE (18:30)
[2017-05-26] MEDS: METOCLOPRAMIDE HCL 10 MG/2 ML VIAL IV SCH ×2 (18:52→23:37)
--- NOTE | 2017-05-26 19:05 | NUR ---
MS RN CLOSING NOTES PATIENT IN BED OBTUNDED AND NON-VERBAL. CONTINUES ON ON ROOM AIR, BREATHING EVEN AND UNLABORED. ALL NEEDS AND CARE PROVIDED WELL. IV ACCESS ON LFA G#18 AND JANEE MIDLINE INTACT AND PATENT, IVF INFUSING WELL.BRACE INTACT IN SERGIO DUE TO FX ON RIGHT ARM, PULSE PRESENT IN RIGHT HAND. REMAINS WITH GENERALIZED EDEMA, EXTREMITIES KEPT ELEVATED. NPO MAINTAINED. 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 DRESSING INTACT ON G-TUBE STOMA. WINKLER INTACT AND DRAINING CLEAR DARK YELLOWISH COLORED URINE. BED IN THE LOWEST/LOCKED POSITION WITH SIDE-RAILS UP APPROPRIATE. ALL SAFETY MEASURES MAINTAINED. ENDORSED TO MORTGAGE ORIGINATOR FOR DORA..
--- NOTE | 2017-05-26 19:30 | NUR ---
MS RN NOTE RECEIVED PATIENT FROM DAY SHIFT, PATIENT IS OBTUNDED AND NON-VERBAL. CONTINUES ON ON ROOM AIR, BREATHING EVEN AND UNLABORED. IV ACCESS ON LFA G#18 AND JANEE MIDLINE INTACT AND PATENT, IVF INFUSING WELL.BRACE INTACT IN SERGIO DUE TO FX ON RIGHT ARM, PULSE PRESENT IN RIGHT HAND. REMAINS WITH GENERALIZED EDEMA, EXTREMITIES KEPT ELEVATED. NPO MAINTAINED. DRESSING INTACT ON G-TUBE STOMA. WINKLER INTACT AND DRAINING CLEAR DARK GREENISH COLORED URINE. SRX2, BED IN LOW POSITION, CALL LIGHT WITHIN REACH, WILL CONTINUE TO MONITOR PATIENT.
[2017-05-26 20:00] VITALS: BP 103/39
[2017-05-26] MEDS: FAMOTIDINE/PF INJ 20 MG/2 ML VIAL IV SCH (20:39)
--- NOTE | 2017-05-26 21:00 | NUR ---
MS RN NOTE DR. MONTELONGO SAW THE PATIENT, NOT PLANNING TO DO SURGERY YET UNTIL G TUBE STOMA SITE IS HEALED, WILL CONTACT GI DOCTOR FOR CONSULTATION WELL. Addendum: 05/26/17 at 2153 by TAMARA ALEJO RN ALSO WANTED TO COVER HER G TUBE SITE WITH OSTOMY BAG INSTEAD OF COVERING WITH DSD SINCE GASTRIC DRAINAGE IRRITATES HER SKIN. WILL CHANGE TO OSTOMY BAG ON HER G TUBE SITE.
[2017-05-26] MEDS: ATORVASTATIN 10 MG TABLET GT SCH (21:58)
[2017-05-26] MEDS: LORAZEPAM 1 MG TABLET GT SCH (21:58)
[2017-05-26] MEDS: INSULIN DETEMIR 100 UNIT/ML CARTRIDGE SQ SCH (21:58)
[2017-05-26] MEDS: MEMANTINE HCL 5 MG TABLET PO SCH (21:58)
[2017-05-27 04:00] VITALS: BP 111/45
[2017-05-27] MEDS: METOCLOPRAMIDE HCL 10 MG/2 ML VIAL IV SCH ×3 (05:37→17:27)
[2017-05-27] MEDS: PIPERACILLIN /TAZOBACTAM 2.25 G in IV D5W 50 ML IV SCH ×3 (05:38→17:27)
[2017-05-27] MEDS: BLOOD SUGAR DIAGNOSTIC 1 EACH STRIP IN SCH ×3 (05:38→17:27)
--- NOTE | 2017-05-27 05:59 | NUR ---
MS RN NOTE PATIENT'S BS THIS MORNING WAS 148MG/DL, NO INSULIN DOSE COVERED AT THIS TIME DUE TO BEING NPO DIAGNOSIS AND FLUID D5NS WAS DISCONTINUED. WILL ENDORSE TO DAY SHIFT NURSE WELL.
--- NOTE | 2017-05-27 06:42 | NUR ---
MS RN NOTE PATIENT IS RESTING IN BED, NO CHANGE OF CONDITION NOTED AT THIS TIME. MID LINE IS PATENT AND INTACT, NO S/S OF RESPIRATORY DISTRESS NOTED. WILL ENDORSE TO DAY SHIFT NURSE FOR DORA.
--- NOTE | 2017-05-27 07:41 | NUR ---
MS RN NOTE RECEIVED PATIENT RESTING IN BED OBTUNDED AND NON-VERBAL. NO FORM OF DISTRESS NOTED BREATHING EVEN AND UNLABORED, ON ROOM AIR. NO S/S OF PAIN NOTED. IV ACCESS ON LFA G#18 AND JANEE MIDLINE INTACT AND PATENT, H/L. GTUBE SITE NOTED WITH OSTOMY BAG NPO ALL MEDS HELD EXCEPT IV. WINKLER CATH IN PLACE INTACT AND DRAINING DARK GREENISH URINE. SAFETY MEASURES RENDERED, BED IN LOW POSITION, CALL LIGHT WITHIN REACH, WILL CONTINUE TO MONITOR PATIENT.
[2017-05-27 08:00] VITALS: BP 129/54
[2017-05-27] MEDS: FERROUS SULFATE (325 MG) 325 MG/TAB TABLET GT SCH ×2 (08:27→16:48)
[2017-05-27] MEDS: LOSARTAN POTASSIUM 25 MG TABLET GT SCH (08:27)
[2017-05-27] MEDS: AMLODIPINE BESYLATE 5 MG TABLET PO SCH (08:28)
[2017-05-27] MEDS: CALCIUM CARB 250MG /VITAMIN D 1 UDTAB GT SCH (08:28)
[2017-05-27] MEDS: METOPROLOL TARTRATE 25 MG TABLET GT SCH ×2 (08:28→16:48)
[2017-05-27] MEDS: FAMOTIDINE/PF INJ 20 MG/2 ML VIAL IV SCH ×3 (08:28→20:43)
[2017-05-27] MEDS: NEOMY SULF/BACITRAC ZN/POLY 15 GM TUBE TP SCH (09:21)
[2017-05-27] MEDS: MUPIROCIN OINT 2% 22 GM TUBE SCH ×2 (09:22→20:45)
--- NOTE | 2017-05-27 12:30 | NUR ---
MS/RN NOTES 1200 BLOOD SUGAR 146MG/DL. NO INSULIN COVERAGE REQUIRED D/T NPO STATUS. WILL ASSES FOR S/S OF HYPO/HYPERGLYCEMIA.
[2017-05-27 16:00] VITALS: BP 125/40
[2017-05-27] MEDS ORDERED: DIATR MEGLU/DIATRIZOATE SODIUM 30 ML BOTTLE (GASTROGRAPHIN) ONE (16:46)
--- NOTE | 2017-05-27 17:03 | NUR ---
MS/RN NOTES DR. MONTELONGO RE-INSETED G-TUBE AT BEDSIDE. KUB DONE RESULTS SHOW TO BE LEAKING.
[2017-05-27] MEDS: MORPHINE SULFATE INJ 2 MG/ML DISP.SYRIN IV PRN (17:27)
--- NOTE | 2017-05-27 17:30 | NUR ---
MS/RN NOTES PATIENT APPEARS IN PAIN USING FLACC SCALE, WITH FACIAL GRIMACING. ADMINISTERED MORPHINE 1MG VIA IV FOR COMFORT/PAIN. WILL ASSESS S/S OF PAIN/DISCOMFORT.
--- NOTE | 2017-05-27 17:35 | NUR ---
MS/RN NOTES X1 LARGE BM NOTED. WINKLER CATH OUTPUT 200.
[2017-05-27 19:00] VITALS: BP 134/55
--- NOTE | 2017-05-27 19:05 | NUR ---
MS/RN NOTES PATIENT RESTING IN BED, NO SIGNIFICANT CHANGES NOTED, APPEARS STABLE AT THIS TIME. VITAL SIGNS WITHIN NORMAL LIMITS. ALL DUE MEDICATIONS GIVEN, ALL NEEDS MET AND ATTENDED. PATIENT KEPT CLEAN AND DRY, ASSISTED WITH BATH, IMPLEMENTED WOUND CARE ORDERED, REPOSITIONED EVERY 2 HOURS. SAFETY MEASURES RENDERED, ISOLATION PRECAUTIONS INITIATED. WILL ENDORSE CARE TO AUTOMOTIVE ENGINEERING TECHNICIAN FOR DORA.
--- NOTE | 2017-05-27 19:15 | NUR ---
MS/RN NOTES RECEIVED PT. LYING IN BED RESTING. PT. IS NON-VERBAL, OBTUNDED. OPENS EYES. BREATHING EVEN AND UNLABORED ON ROOM AIR. NO SOB, RESPIRATORY DISTRESS OR S/S OF PAIN NOTED AT THIS TIME. PT. WITH LEFT UPPER ARM MIDLINE PRESENT, PATENT AND INTACT. PT. WITH LEFT FOREARM 20 GAUGE IV SALINE LOCK PRESENT, PATENT AND INTACT. PT. WITH WINKLER CATHETER PRESENT, PATENT AND INTACT DRAINING CLEAR YELLOW URINE. BED IN LOWEST POSITION, CALL LIGHT WITHIN REACH, SIDE RAILS UP X3, WILL CONTINUE TO MONITOR.
[2017-05-27 20:00] VITALS: BP 134/55
[2017-05-27] MEDS: INSULIN DETEMIR 100 UNIT/ML CARTRIDGE SQ SCH (22:00)
[2017-05-27] MEDS: MEMANTINE HCL 5 MG TABLET PO SCH (22:00)
[2017-05-27] MEDS: LORAZEPAM 1 MG TABLET GT SCH (22:00)
[2017-05-27] MEDS: ATORVASTATIN 10 MG TABLET GT SCH (22:00)
[2017-05-28] MEDS: PIPERACILLIN /TAZOBACTAM 2.25 G in IV D5W 50 ML IV SCH ×4 (00:14→17:36)
[2017-05-28] MEDS: METOCLOPRAMIDE HCL 10 MG/2 ML VIAL IV SCH ×4 (00:14→17:36)
[2017-05-28] MEDS: BLOOD SUGAR DIAGNOSTIC 1 EACH STRIP IN SCH ×4 (00:26→17:36)
--- NOTE | 2017-05-28 00:26 | NUR ---
MS/RN NOTES MIDNIGHT ACCUCHECK PERFORMED. BG = 126 MG/DL. NO INSULIN COVERAGE NEEDED, PT. IS NPO. NO S/S OF HYPO/HYPERGLYCEMIA NOTED AT THIS TIME. PT. APPEARS COMFORTABLE AT THIS TIME, LYING IN BED RESTING, BREATHING EVEN AND UNLABORED. NO S/S OF PAIN NOTED AT THIS TIME. WILL CONTINUE TO MONITOR.
[2017-05-28 04:00] VITALS: BP_SYST 134; BP_SYST 136; BP_DIAS 53
--- NOTE | 2017-05-28 06:36 | NUR ---
MS/RN NOTES PT. LYING IN BED RESTING. BREATHING EVEN AND UNLABORED ON ROOM AIR. NO SOB, RESPIRATORY DISTRESS OR S/S OF PAIN NOTED AT THIS TIME AND THROUGHOUT SHIFT. PT. WITH LEFT UPPER ARM MIDLINE PRESENT, PATENT AND INTACT. PT. WITH LEFT FOREARM 20 GAUGE IV SALINE LOCK PRESENT, PATENT AND INTACT. PT. WITH WINKLER CATHETER PRESENT, PATENT AND INTACT DRAINING CLEAR YELLOW URINE. ALL PT. NEEDS MET. PT. TURNED AND REPOSITIONED Q2H AND NEEDED. BED IN LOWEST POSITION, CALL LIGHT WITHIN REACH, SIDE RAILS UP X3, WILL ENDORSE TO DAYSTXFT NURSE FOR CONTINUITY OF CARE.
[2017-05-28 08:00] VITALS: BP 154/49
--- NOTE | 2017-05-28 08:00 | NUR ---
AM RN NOTES RECEIVED PT RESTING IN BED, NO SOB OR DISTRESS NOTED, NO S/S OF PAIN OR DISCOMFORT, PT ON NPO, WILL MONITOR.
[2017-05-28] MEDS: METOPROLOL TARTRATE 25 MG TABLET GT SCH ×2 (08:43→16:14)
[2017-05-28] MEDS: CALCIUM CARB 250MG /VITAMIN D 1 UDTAB GT SCH (08:43)
[2017-05-28] MEDS: FAMOTIDINE/PF INJ 20 MG/2 ML VIAL IV SCH ×2 (08:43→20:57)
[2017-05-28] MEDS: MUPIROCIN OINT 2% 22 GM TUBE SCH ×2 (08:45→20:58)
[2017-05-28] MEDS: NEOMY SULF/BACITRAC ZN/POLY 15 GM TUBE TP SCH (08:46)
[2017-05-28] MEDS: LOSARTAN POTASSIUM 25 MG TABLET GT SCH (08:46)
[2017-05-28] MEDS: AMLODIPINE BESYLATE 5 MG TABLET PO SCH (08:46)
[2017-05-28] MEDS: FERROUS SULFATE (325 MG) 325 MG/TAB TABLET GT SCH ×2 (08:46→16:10)
[2017-05-28] MEDS ORDERED: DIATR MEGLU/DIATRIZOATE SODIUM 30 ML BOTTLE (GASTROGRAPHIN) ONE (09:54)
--- NOTE | 2017-05-28 10:00 | NUR ---
RADIOLOGY AT BEDSIDE, NOT ABLE TO PERFORM KUB DUE TO LEAKAGE OF GT, NOT ABLE TO INJECT CONTRAST, WILL INFORM PMD.
--- NOTE | 2017-05-28 10:04 | NUR ---
PT'S G TUBE LEAKS. MUST BE FIXED OR ADJUSTED BEFORE KUB WITH GASTROGRAFIN IS DONE. SERGEY HARDIN IS AWARE.
--- NOTE | 2017-05-28 12:00 | NUR ---
FAMILY AT BEDSIDE, PER PT'S SON THEY ARE THINKING ABOUT HOSPICE CARE. SUPPORT AND COMFORT GIVEN.
--- NOTE | 2017-05-28 14:20 | NUR ---
PT SEEN BY DR. MONTELONGO, GT MANIPULATED TO STOP LEAKAGE, GT SITE CLEANED AND PAT DRY, WILL MONITOR, PER MD TO DO NOT USE GT AT THIS TIME.
--- NOTE | 2017-05-28 14:25 | NUR ---
PER DR. MONTELONGO NO NEED FOR KUB AT THIS TIME, JUST TO MONITOR GT FOR LEAKAGE, WILL INFORM PMD.
[2017-05-28 16:00] VITALS: BP_SYST 138; BP_DIAS 35; BP_DIAS 55
[2017-05-28] MEDS: MORPHINE SULFATE INJ 2 MG/ML DISP.SYRIN IV PRN (16:16)
--- NOTE | 2017-05-28 18:21 | NUR ---
PT IN STABLE CONDITION, NO SOB OR DISTRESS NOTED, GT SITE WITH LEAKING, NO BLEEDING NOTED, GT SITE CARE DONE PRN, WILL INDORSE PT TO NEXT SHIFT FOR DORA.
--- NOTE | 2017-05-28 19:30 | NUR ---
RN NOTES RECEIVED PT ASLEEP, HOB ELEVATED, BREATHING REGULAR AND UNLABORED, NO SOB, NOT IN DISTRESS, ON ROOM AIR AND TOLERATED WELL. PT IS NON VERBAL, OBTUNDED, OPENS EYES TO VERBAL AND TACTILE STIMULI. IV ACCESS ON LEFT FORE ARM AND MIDLINE ON LEFT UPPER ARM PATENT AND INTACT. GT INTACT, WITH GREENISH DISCHARGE NOTED ON THE SITE, PER REPORT DO NOT USE GT FOR NOW. KEPT PT ON NPO. RIGHT UPPER ARM BRACE INTACT. WINKLER CATH INTACT WITH CLEAR URINE OUT PUT NOTED. DRESSING ON RIGHT FORE ARM SKIN TEAR, LEFT LEG AND RIGHT KNEE INTACT, DRY AND CLEAN. KEEP BED IN THE LOWEST POSITION, LOCKED, SIDE RAILS X2 UP, WITH CALL LIGHT WITH IN REACH. ISOLATION PRECAUTION OBSERVED. KEPT CLEAN AND DRY. WILL TURN AND REPOSITION PT. WILL CONTINUE TO MONITOR PT.
[2017-05-28 20:00] VITALS: BP 141/42
[2017-05-28] MEDS: INSULIN DETEMIR 100 UNIT/ML CARTRIDGE SQ SCH (22:00)
[2017-05-28] MEDS: MEMANTINE HCL 5 MG TABLET PO SCH (22:00)
[2017-05-28] MEDS: LORAZEPAM 1 MG TABLET GT SCH (22:00)
[2017-05-28] MEDS: ATORVASTATIN 10 MG TABLET GT SCH (22:00)
--- NOTE | 2017-05-28 22:30 | NUR ---
RN NOTES ALL DUE MEDS DUE AT 2200 NOT GIVEN BECAUSE PT IS NPO AND GT IS LEAKING AND MALFUNCTIONING.
--- NOTE | 2017-05-28 22:31 | NUR ---
RN NOTES BLOOD SUGAR CHECKED 12 MG/DL, LEVEMIR NOT ADMINISTERED BECAUSE PT IS NPO AND GT CANNOT BE USE FOR NOW. WILL CONTINUE TO MONITOR PT.
[2017-05-29] VITALS: BP 141/42
[2017-05-29] MEDS: METOCLOPRAMIDE HCL 10 MG/2 ML VIAL IV SCH ×3 (00:14→12:00)
[2017-05-29] MEDS: BLOOD SUGAR DIAGNOSTIC 1 EACH STRIP IN SCH ×3 (00:14→13:10)
[2017-05-29] MEDS: PIPERACILLIN /TAZOBACTAM 2.25 G in IV D5W 50 ML IV SCH ×3 (00:15→13:10)
[2017-05-29] MEDS: INSULIN REGULAR, HUMAN 100 UNIT/ML 3 ML VIAL SQ PRN ×2 (00:22→05:56)
--- NOTE | 2017-05-29 00:22 | NUR ---
RN NOTES BLOOD SUGAR CHECKED 126 MG /DL, NO INSULIN COVERAGE PER SLIDING SCALE AND PT IS NPO. WILL CONTINUE TO MONITOR PT.
[2017-05-29 04:00] VITALS: BP 156/52
--- NOTE | 2017-05-29 05:56 | NUR ---
RN NOTES BLOOD SUGAR CHECKED 125 MG/DL, NO INSULIN COVERAGE PER SLIDING SCALE. WILL CONTINUE TO MONITOR.
--- NOTE | 2017-05-29 07:00 | NUR ---
RN NOTES PT ASLEEP, HOB ELEVATED, BREATHING REGULAR AND UNLABORED, NO SOB, NOT IN DISTRESS, ON ROOM AIR WITH GOOD SATURATION. VITAL SIGNS STABLE, AFEBRILE. NO SIGNS OF PAIN AND DISCOMFORT NOTED. NO EPISODE OF NAUSEA AND VOMITING. KEPT ON NPO, GT FEEDING ON HOLD. NO SIGNS OF HYPOGLYCEMIA NOTED. STILL NOTED WITH MINIMAL LEAKAGE/DISCHARGE ON GT SITE., SKIN CARE AND WOUND CARE DONE. TURNED AND REPOSITION Q2H. KEPT CLEAN AND DRY. WILL ENDORSE TO MORNING RN FOR CONTINUITY OF CARE.
[2017-05-29 08:00] VITALS: BP 156/55
[2017-05-29] MEDS: CALCIUM CARB 250MG /VITAMIN D 1 UDTAB GT SCH (09:00)
[2017-05-29] MEDS: FERROUS SULFATE (325 MG) 325 MG/TAB TABLET GT SCH (09:00)
[2017-05-29] MEDS: METOPROLOL TARTRATE 25 MG TABLET GT SCH (09:00)
[2017-05-29] MEDS: FAMOTIDINE/PF INJ 20 MG/2 ML VIAL IV SCH (09:00)
[2017-05-29] MEDS: AMLODIPINE BESYLATE 5 MG TABLET PO SCH (09:00)
[2017-05-29] MEDS: LOSARTAN POTASSIUM 25 MG TABLET GT SCH (09:00)
[2017-05-29] MEDS ORDERED: DIATR MEGLU/DIATRIZOATE SODIUM 30 ML BOTTLE (GASTROGRAPHIN) ONE (09:33)
[2017-05-29] MEDS ORDERED: PIPE3.379 IV (12:29)
[2017-05-29] MEDS: MUPIROCIN OINT 2% 22 GM TUBE SCH (13:09)
[2017-05-29] MEDS: NEOMY SULF/BACITRAC ZN/POLY 15 GM TUBE TP SCH (13:09)
--- NOTE | 2017-05-29 14:00 | NUR ---
RN NOTE PT IS OKAY TO GO WITH LEAKING G TUBE BACK TO [facility] ACCORDING TO ELIZABETH CASE.
[2017-05-29 16:00] VITALS: BP 151/41
--- NOTE | 2017-05-29 16:39 | NUR ---
RN NOTE PT DISCHARGED TO [facility] IN STABLE CONDITION, WITH PLAN OF HOSPICE EVAL AT THE FACILITY, EXIT CARE DONE, DISCHARGE INSTRUCTIONS PROVIDED TO EMT AND REPORT GIVEN TO ANIRUDH RINCON, ID BAND REMOVED, PT LEFT WITH IV SITES IN PLACE, F/C IN PLACE, R UA BRACE IN PLACE. PICTURES TAKEN AND PLACED IN CHART. G TUBE SITE LEAKING, DRESSING CHANGED AND REINFORCED, G TUBE IN PLACE.
== END 2017-05-29 16:26 | DRG 393 ==
LOC: ER 14:42 → MEDSG1 16:18
PROC: 05H633Z Insertion of Infusion Device into Left Subclavian Vein, Percutaneous Approach (ICD-10-PCS; principal; 2017-05-23)
DX: K94.21 Gastrostomy hemorrhage (principal); G82.50 Quadriplegia, unspecified; G93.40 Encephalopathy, unspecified; I50.33 Acute on chronic diastolic (congestive) heart failure; I50.32 Chronic diastolic (congestive) heart failure; K31.6 Fistula of stomach and duodenum; L03.90 Cellulitis, unspecified; S42.301A Unspecified fracture of shaft of humerus, right arm, initial encounter for closed fracture; D63.8 Anemia in other chronic diseases classified elsewhere; D69.6 Thrombocytopenia, unspecified; E03.9 Hypothyroidism, unspecified; E11.9 Type 2 diabetes mellitus without complications; E78.5 Hyperlipidemia, unspecified; E86.0 Dehydration; I25.10 Atherosclerotic heart disease of native coronary artery without angina pectoris; F01.50 Vascular dementia, unspecified severity, without behavioral disturbance, psychotic disturbance, mood disturbance, and anxiety; J44.9 Chronic obstructive pulmonary disease, unspecified; K21.9 Gastro-esophageal reflux disease without esophagitis; K44.9 Diaphragmatic hernia without obstruction or gangrene; Y83.3 Surgical operation with formation of external stoma as the cause of abnormal reaction of the patient, or of later complication, without mention of misadventure at the time of the procedure; Y92.129 Unspecified place in nursing home as the place of occurrence of the external cause; X58.XXXA Exposure to other specified factors, initial encounter; K94.23 Gastrostomy malfunction; Z95.1 Presence of aortocoronary bypass graft; Z87.11 Personal history of peptic ulcer disease; Z86.73 Personal history of transient ischemic attack (TIA), and cerebral infarction without residual deficits; R13.10 Dysphagia, unspecified; Z79.899 Other long term (current) drug therapy
CPT/HCPCS: 36415; 36569; 71010-TC; 73060-TC; 73090-TC; 74000-TC; 80048-TC; 80061-TC; 81000-TC; 82962-TC; 83735-TC; 84100-TC; 84443-TC; 85025-TC; 85610-TC; 85730-TC; 86850-TC; 87081-TC; 87086-TC; 87186-TC; A4606; A6253; A6402; A6403; A9563; J1815; J2270; J2543; J2765; J3475; J3480; J3490; J7040; J7042; J7060; Q9963; Z7610